=== PATIENT | female | born 1955 | race Caucasian/White ===

== ENCOUNTER → 2017-06-20 | Outpatient (CLI) | payer MEDICARE, MEDICAID ==
[~2017-06-20] MED LIST: AMPYRA10 MG PO; BACLOFEN10 MG PO; CALCIUM CARBONATE; CALCIUM1 CAP PO; CALTRATE-600 W600 MG PO; CELCEPT; CELLCEPT500 MG PO; CYMBALTA; DITROPAN 5MG TAB5 MG PO; DITROPAN XL5 MG PO; LEVAQUIN 750MG750 MG PO; LIORESAL 1010 MG/TAB PO; NEURONTIN100 MG PO; NEXIUM 40MG40 MG PO; PRENATAL VITAMI1 TA5 PO; PRENATAL VITAMI1 TAB PO; PROTONIX TR40 MG PO; RECLAST5 MG/1001 IV; SIMVASTATIN80 MG PO; VITA #121000 MCG/M IM; [UNRECOGNIZED DRUG - OTHER]
== END ==
LOC: MC.RAD 10:00
DX: Z12.31 Encounter for screening mammogram for malignant neoplasm of breast (principal); N63.21 Unspecified lump in the left breast, upper outer quadrant

== ENCOUNTER → 2017-06-22 | Outpatient (CLI) | payer MEDICARE, MEDICAID | LOC: MC.RAD 12:53 | DX: N63.11 Unspecified lump in the right breast, upper outer quadrant (principal); N60.02 Solitary cyst of left breast ==

== ENCOUNTER 2017-07-12 09:45 | Outpatient (RCR) | payer MEDICARE, MEDICAID | END 2017-09-07 13:12 | disposition home or self-care (01) | LOC: MKS.ESL.PT 09:45 | DX: G35 Multiple sclerosis (principal); H81.10 Benign paroxysmal vertigo, unspecified ear | CPT/HCPCS: G8978-GP; G8979-GP ==

== ENCOUNTER → 2017-12-19 | Outpatient (CLI) | payer MEDICARE, MEDICAID | LOC: COL.RAD 12:10 | DX: G35 Multiple sclerosis (principal) | CPT/HCPCS: A9585 ==

== ENCOUNTER 2018-08-09 15:10 | Outpatient (CLI) | payer MEDICARE, MEDICAID ==
[~2018-08-09] VITALS: Ht 170.2 cm; Wt 72.8 kg
[2018-08-09 16:05] VITALS: BP 117/63; PULSE 75; TEMP 98.3
[2018-08-09] MEDS ORDERED: NEXIUM 40MG40 MG PO (16:37)
[2018-08-09] MEDS ORDERED: MYRBETR25MG PO (16:37)
[2018-08-09] MEDS ORDERED: ZOCOR 80MG80 MG PO (16:37)
[2018-08-09] MEDS ORDERED: LIORESAL 1010 MG/TAB PO (16:37)
[2018-08-09] MEDS ORDERED: AMPYRA10 MG PO (16:38)
== END 2018-08-09 16:38 | disposition home or self-care (01) ==
LOC: EUO 15:10
DX: M81.0 Age-related osteoporosis without current pathological fracture (principal)
CPT/HCPCS: J3489

== ENCOUNTER → 2018-11-20 | Outpatient (CLI) | payer MEDICARE, MEDICAID ==
[~2018-11-20] MED LIST changes: +MYRBETR25MG PO; +ZOCOR 80MG80 MG PO
== END ==
LOC: MC.RAD 11:03
DX: Z12.31 Encounter for screening mammogram for malignant neoplasm of breast (principal)

== ENCOUNTER 2019-11-29 12:45 | Outpatient (RCR) | payer MEDICARE, MEDICAID | END 2020-01-08 | disposition still patient (30) | LOC: MKS.ESL.PT | DX: M25.512 Pain in left shoulder (principal) ==

== ENCOUNTER → 2020-12-18 | Outpatient (CLI) | payer MEDICARE, MEDICAID | LOC: MC.RAD 14:45 | DX: Z12.31 Encounter for screening mammogram for malignant neoplasm of breast (principal) ==

== ENCOUNTER → 2024-06-26 | Outpatient (CLI) | payer MEDICARE, MEDICAID | LOC: MC.RAD 08:20 | DX: Z12.31 Encounter for screening mammogram for malignant neoplasm of breast (principal) ==